=== PATIENT | male | born 1985 | race Caucasian/White ===

== ENCOUNTER → 2016-09-13 | Outpatient (CLI) | payer BC ==
--- NOTE | 2016-09-15 09:28 | SLEEP ---
DATE OF STUDY: 09/14/2016 ATTENDING PHYSICIAN: YESENIA Maria. The patient is 31 years old, who weighs 210 pounds with a BMI of 37.2. The patient's Sawyer score was 11. Home sleep study was performed by [facility]. The total recording time was 395 minutes. During the night study, the patient had 4 central apneas, 117 obstructive apneas, and 5 mixed apneas. There were 134 hypopneas. The patient's apnea hypopnea index was 40 per hour. Supine index 46 per hour. Nocturnal oximetry study revealed that 33 minutes were spent in oxygen saturation of less than 90%. Lowest oxygen level was 73% with an average of 93%. Mean heart rate was 89 beats per minute. IMPRESSION: 1. Severe sleep apnea-hypopnea syndrome with an apnea-hypopnea index of 40 per hour. 2. Nocturnal hypoxia secondary to obstructive sleep apnea. RECOMMENDATIONS: 1. The patient should return for in-lab CPAP titration study. 2. Once optimal CPAP pressure is achieved, then follow up in 4-6 weeks to assess compliance with CPAP and to document clinical improvement. 3. Weight loss is strongly advised. 4. Avoid SENIOR SALES REPRESENTATIVE depressants. 5. Caution regarding driving until symptoms of sleep apnea resolve with the use of CPAP. YUKI JIMENEZ MD DR: JOSUE/christy JOB#: [id number] / [id number] JENNIE Wells MTDD
== END | disposition home or self-care (01) ==
LOC: RT 07:23
PROVIDERS: ATTEND Physician Assistant
DX: R40.0 Somnolence (principal); R06.83 Snoring; R06.81 Apnea, not elsewhere classified
CPT/HCPCS: G0399

== ENCOUNTER → 2016-11-03 | Outpatient (CLI) | payer BC ==
--- NOTE | 2016-11-04 19:57 | SLEEP ---
DATE OF STUDY: 11/03/2016 OBJECTIVE: The patient is a 31-year-old male with trouble falling asleep, snoring, fatigue, observed apnea, and excessive daytime somnolence. Body mass index 37. [place] sleep score 11. INTERPRETATION: This is a CPAP titration study. The patient is returning from my prior study. At study, showed severe sleep apnea-hypopnea syndrome with an apnea-hypopnea index of 40 events per hour of sleep. On the current study, sleep architecture is characterized by a sleep efficiency of 79% across the 7.1 hours of recording time. Stage volumes are normal for age. Respiratory monitoring shows a total of 76 events for an apnea-hypopnea index of 13.6 events per hour of sleep. Minimum oxygen saturation is 85%. Treatment is initiated and in the setting of 15 cm, apnea-hypopnea index is 4.5 events per hour sleep. No significant cardiac arrhythmias are observed. Periodic limb movements of sleep occur at the rate of 11 per hour, 0 per hour associated with arousals. IMPRESSION: 1. Abnormal polysomnogram showing obstructive sleep apnea-hypopnea treatable with CPAP at 15 cm. 2. Mild periodic limb movements of sleep. RECOMMENDATION: 1. The patient should be started on 15 cm of CPAP using a Respironics small DreamWear nasal pillows. 2. The patient should pursue weight loss and avoid sedatives and alcohol. Thank you for letting us help with the patient's care. CATHY RANGEL MD DR: NAPOLEON/christy JOB#: [id number] / [id number] Dr. AMARILIS Turner [facility]
== END | disposition home or self-care (01) ==
LOC: RT 18:43
PROVIDERS: ATTEND Physician Assistant
DX: G47.33 Obstructive sleep apnea (adult) (pediatric) (principal)
CPT/HCPCS: 95811

== ENCOUNTER 2016-12-05 19:00 | Emergency (ER) | payer BC ==
--- NOTE | 2016-12-05 19:43 | PHYS DOC ---
Past Medical History Past Medical History: Anxiety Past Surgical History: Other Additional Past Surgical Histo: ACL REPAIR Alcohol Use: Rarely Drug Use: None Adult General Chief Complaint Chief Complaint: ITCHING HPI HPI Patient is a 31 year old male who presents with 5 day history of itchy rash to the palms into the face and neck, some subjective feelings of throat closing and been able to swallow secretions normally with a normal voice. Levasy to be secondary to the Zoloft allergy and the medication was discontinued on Tuesday per the direction of his PCP. He's been taking some Benadryl and Zyrtec without much improvement at home. Review of Systems Review of Systems Constitutional: Denies fever or chills [] Eyes: Denies change in visual acuity, redness, or eye pain [] HENT: Denies nasal congestion or sore throat [] Respiratory: Denies cough or shortness of breath [] Cardiovascular: No additional information not addressed in HPI [] GI: Denies abdominal pain, nausea, vomiting, bloody stools or diarrhea [] : Denies dysuria or hematuria [] Musculoskeletal: Denies back pain or joint pain [] Integument: Denies rash or skin lesions [] Neurologic: Denies headache, focal weakness or sensory changes [] Endocrine: Denies polyuria or polydipsia [] Current Medications Current Medications Current Medications Medications (Trade) Dose Ordered Sig/Arik Start Time Stop Time Status Last Admin Dose Admin Dexamethasone Sodium Phosphate (Decadron) 10 mg 1X ONCE 12/05/16 19:45 12/05/16 19:50 DC 12/05/16 20:06 10 MG Diphenhydramine HCl (Benadryl) 50 mg 1X ONCE 12/05/16 19:45 12/05/16 19:50 DC 12/05/16 20:02 50 MG Famotidine (Pepcid) 20 mg 1X ONCE 12/05/16 19:45 12/05/16 19:50 DC 12/05/16 20:01 20 MG Sodium Chloride 500 ml @ 500 mls/hr 1X ONCE 12/05/16 19:45 12/05/16 20:44 12/05/16 20:00 500 MLS/HR Allergies Allergies Allergies Coded Allergies Type Severity Reaction Last Updated Verified sertraline Allergy Severe HIVES 12/05/16 Yes Physical Exam Physical Exam Constitutional: Well developed, well nourished, no acute distress, non-toxic appearance. [] HENT: Normocephalic, atraumatic, bilateral external ears normal, oropharynx moist, no oral exudates, nose normal. [] Eyes: PERRLA, EOMI, conjunctiva normal, no discharge. [] Neck: Normal range of motion, no tenderness, supple, no stridor. [] Cardiovascular:Heart rate regular rhythm, no murmur [] Lungs & Thorax: Bilateral breath sounds clear to auscultation [] Abdomen: Bowel sounds normal, soft, no tenderness, no masses, no pulsatile masses. [] Skin: Warm, dry, no erythema, faint papular erythematous rash to the for head neck and some slight erythema to the palms of both hands [] Back: No tenderness, no CVA tenderness. [] Extremities: No tenderness, no cyanosis, no clubbing, ROM intact, no edema. [] Neurologic: Alert and oriented X 3, normal motor function, normal sensory function, no focal deficits noted. [] Psychologic: Affect normal, judgement normal, mood normal. [] Current Patient Data Vital Signs Vital Signs Date Time Temp Pulse Resp B/P (MAP) Pulse Ox O2 Delivery O2 Flow Rate FiO2 12/05/16 19:16 98.7 84 20 96 Room Air 98.7 EKG EKG [] Radiology/Procedures Radiology/Procedures [] Course & Med Decision Making Course & Med Decision Making Pertinent Labs and Imaging studies reviewed. (See chart for details) Plan of care will be IV fluids Benadryl and Pepcid and steroids and reexamination. 2030 PM reexamination patient feels much improved the rash is resolved advised we'll place on prednisone for the next 4 days. Dragon Disclaimer Dragon Disclaimer This electronic medical record was generated, in whole or in part, using a voice recognition dictation system. Departure Departure Impression: Primary Impression: Urticaria due to drug allergy Disposition: HOME, SELF-CARE Condition: IMPROVED Referrals: JENNIE OLMOS (PCP) Patient Instructions: Drug Allergy, [id number], Hives, Gzkw-wv-Cbch Scripts Prednisone (PREDNISONE) 50 Mg Tablet 1 TAB PO DAILY for 4 Days, #4 TAB Please start tomorrow Prov: ERICKA ADAMSON MD 12/05/16 ERICKA ADAMSON MD Dec 05, 2016 19:43
[2016-12-05] MEDS ORDERED: DEXAMETHASONE SOD PHOS 4 MG/ML VIAL IV ONE (19:45)
[2016-12-05] MEDS ORDERED: diphenhydrAMINE 50 MG/ML VIAL IVP ONE (19:45)
[2016-12-05] MEDS ORDERED: FAMOTIDINE 20 MG/2 ML VIAL IVP ONE (19:45)
[2016-12-05] MEDS ORDERED: IV NORMAL SALINE 500ML BAG 500 ML IV ONE (19:45)
[2016-12-05 20:30] VITALS: BP 138/87
[2016-12-05] MEDS ORDERED: PRED50TA PO (20:30)
== END 2016-12-05 20:35 | disposition home or self-care (01) ==
LOC: ER 19:00
DX: L50.0 Allergic urticaria (principal); Z88.8 Allergy status to other drugs, medicaments and biological substances
CPT/HCPCS: 96361; 96374; 96375; 99285; J1100; J1200; J7040; S0028

== ENCOUNTER 2016-12-09 12:04 | Emergency (ER) | payer BC ==
[~2016-12-09] VITALS: Ht 160 cm; Wt 97.5 kg
[~2016-12-09 12:04] MED LIST: PRED50TA PO
[2016-12-09] MEDS ORDERED: EPINEPHrine SYRINGE 1 MG/10 ML SYRINGE IM ONE (12:45)
[2016-12-09] MEDS ORDERED: diphenhydrAMINE 50 MG/ML VIAL IVP ONE (12:45)
[2016-12-09] MEDS ORDERED: methylPREDNISolone SOD SUCC PF 125 MG/2 ML VIAL. IV ONE (12:45)
[2016-12-09 13:00] LABS: BASO # 0.1 x10^3/uL (0.0-0.2); BASO % 1 % (0-3); EOS % 0 % (0-3); HEMOGLOBIN 15.8 g/dL (13.0-17.5); LYMPH # 5.4 x10^3/uL (1.0-4.8); LYMPH % 32 % (24-48); MEAN CORPUSCULAR HEMOGLOBIN 28 pg (25-35); MEAN CORPUSCULAR HGB CONC 34 g/dL (31-37); MEAN CORPUSCULAR VOLUME 83 fL (79-100); MONO % 8 % (0-9); NEUT % 60 % (31-73); PLATELET COUNT 250 x10^3/uL (140-400); RED BLOOD COUNT 5.67 x10^6/uL (4.30-5.70); RED CELL DISTRIBUTION WIDTH 13.4 % (11.5-14.5); WHITE BLOOD COUNT 17.3 x10^3/uL (4.0-11.0)
--- NOTE | 2016-12-09 13:04 | PHYS DOC ---
Past Medical History Past Medical History: Anxiety Past Surgical History: Other Additional Past Surgical Histo: ACL REPAIR Alcohol Use: Rarely Drug Use: None Adult General Chief Complaint Chief Complaint: ALLERGIC REACTION HPI HPI Patient is a 31 year old male who presents with complaints of allergic reaction. He started experiencing symptoms last Tuesday he was in the hospital on Tuesday and observing the ED for 2 hours, he felt improved and went home. But he started expressing symptoms again last night and then he got worse today so he decided to come in. Presently the patient is complaining of throat discomfort however he does not have any problems swallowing, no changes in his voice pattern, he does have swelling around the eyes and the face as well as scattered hives in his face and upper body. He is not aware any of any specific allergies and previously he has not experienced any allergic reactions or anaphylaxis. Review of Systems Review of Systems Constitutional: Denies fever or chills [] Eyes: Denies change in visual acuity, redness, or eye pain [] HENT: Denies nasal congestion or sore throat [] Respiratory: Denies cough or shortness of breath [] Cardiovascular: No additional information not addressed in HPI [] GI: Denies abdominal pain, nausea, vomiting, bloody stools or diarrhea [] : Denies dysuria or hematuria [] Musculoskeletal: Denies back pain or joint pain [] Integument: Denies rash or skin lesions [] Neurologic: Denies headache, focal weakness or sensory changes [] Endocrine: Denies polyuria or polydipsia [] Current Medications Current Medications Current Medications Medications (Trade) Dose Ordered Sig/Arik Start Time Stop Time Status Last Admin Dose Admin Diphenhydramine HCl (Benadryl) 25 mg 1X ONCE 12/09/16 12:45 12/09/16 12:46 DC 12/09/16 12:55 25 MG Epinephrine HCl (Adrenalin) 0.5 mg 1X ONCE 12/09/16 13:15 12/09/16 13:16 DC 12/09/16 13:14 0.5 MG Epinephrine HCl (EPINEPHrine SYRINGE) 0.5 mg 1X ONCE 12/09/16 12:45 12/09/16 12:46 Cancel Methylprednisolone Sodium Succinate (SOLU-Medrol 125MG VIAL) 125 mg 1X ONCE 12/09/16 12:45 12/09/16 12:46 DC 12/09/16 12:55 125 MG Allergies Allergies Allergies Coded Allergies Type Severity Reaction Last Updated Verified sertraline Allergy Severe HIVES 12/05/16 Yes Physical Exam Physical Exam Constitutional: Well developed, well nourished, mild distress, non-toxic appearance. [] HENT: Normocephalic, atraumatic,, oropharynx moist with swelling of the mucous membranes however airway still patent, no oral exudates, nose normal. No drooling, no stridor [] Eyes: EOMI, conjunctiva normal, no discharge, periorbital swelling both eyes [ ] Neck: Normal range of motion, no tenderness, supple, no stridor. No LAD, no meningeal signs Cardiovascular:Heart rate regular rhythm, no murmur, normal peripheral perfusion Lungs & Thorax: Bilateral breath sounds clear to auscultation, no tachypnea, no rhonchi, no wheezing Abdomen: Bowel sounds normal, soft, no tenderness, no masses, no pulsatile masses. [] Skin: Warm, dry, scattered hives throughout the face and upper chest [] Back: No tenderness, no CVA tenderness. [] Extremities: No tenderness, no cyanosis, no clubbing, ROM intact, no edema. [] Neurologic: Alert and oriented X 3, normal motor function,, no focal deficits noted. [] Psychologic: Affect normal, judgement normal, mood normal. [] Current Patient Data Vital Signs Vital Signs Date Time Temp Pulse Resp B/P (MAP) Pulse Ox O2 Delivery O2 Flow Rate FiO2 12/09/16 14:24 98 13 141/77 (98) 94 Room Air 12/09/16 12:18 97.6 97.6 Lab Values Laboratory Tests Test 12/09/16 12:20 White Blood Count 17.3 x10^3/uL (4.0-11.0) H Red Blood Count 5.67 x10^6/uL (4.30-5.70) Hemoglobin 15.8 g/dL (13.0-17.5) Hematocrit 47.0 % (39.0-53.0) Mean Corpuscular Volume 83 fL (79-100) Mean Corpuscular Hemoglobin 28 pg (25-35) Mean Corpuscular Hemoglobin Concent 34 g/dL (31-37) Red Cell Distribution Width 13.4 % (11.5-14.5) Platelet Count 250 x10^3/uL (140-400) Neutrophils (%) (Auto) 60 % (31-73) Lymphocytes (%) (Auto) 32 % (24-48) Monocytes (%) (Auto) 8 % (0-9) Eosinophils (%) (Auto) 0 % (0-3) Basophils (%) (Auto) 1 % (0-3) Neutrophils # (Auto) 10.4 x10^3uL (1.8-7.7) H Lymphocytes # (Auto) 5.4 x10^3/uL (1.0-4.8) H Monocytes # (Auto) 1.4 x10^3/uL (0.0-1.1) H Eosinophils # (Auto) 0.1 x10^3/uL (0.0-0.7) Basophils # (Auto) 0.1 x10^3/uL (0.0-0.2) Sodium Level 140 mmol/L (136-145) Potassium Level 3.5 mmol/L (3.5-5.1) Chloride Level 103 mmol/L (98-107) Carbon Dioxide Level 28 mmol/L (21-32) Anion Gap 9 (6-14) Blood Urea Nitrogen 21 mg/dL (8-26) Creatinine 1.0 mg/dL (0.7-1.3) Estimated GFR (Cockcroft-Gault) 86.1 Glucose Level 93 mg/dL (70-99) Calcium Level 8.9 mg/dL (8.5-10.1) Laboratory Tests 12/09/16 12:20 Laboratory Tests 12/09/16 12:20 EKG EKG [] Radiology/Procedures Radiology/Procedures [] Course & Med Decision Making Course & Med Decision Making Pertinent Labs and Imaging studies reviewed. (See chart for details) 1345 SBP now 135. Pt status unchanged, still swelling of oropharynx but patient managing secretions, states he does not feel worse then when he arrived. 1417 pt feels improved, swelling of oropharynx nearly resolved. No drooling, stridor, no respiratory distress. 1449 pt continues to feel improved and is requesting discharge home. No airway compromise or respiratory distress. [] Dragon Disclaimer Dragon Disclaimer This electronic medical record was generated, in whole or in part, using a voice recognition dictation system. Departure Departure Impression: Primary Impression: Allergic reaction Disposition: HOME, SELF-CARE Condition: IMPROVED Referrals: JENNIE OLMOS (PCP) please follow up for recheck by your pcp in 1 day. Please discuss this visit and possible need for evaluation by insulation cutter. Patient Instructions: Allergies, Generic Scripts Diphenhydramine Hcl (BENADRYL) 25 Mg Capsule 1 CAP PO BID for 5 Days, #10 CAP 1 Refill Prov: Jeniffer TRIVEDI MD 12/09/16 Famotidine (PEPCID) 20 Mg Tablet 20 MG PO BID for 5 Days, #10 TAB Prov: Jeniffer TRIVEDI MD 12/09/16 Prednisone (PREDNISONE) 20 Mg Tablet 40 MG PO DAILY for 5 Days, #10 TAB Prov: Jeniffer TRIVEDI MD 12/09/16 Epinephrine (EPIPEN 2-DOROTHY) 0.3 Mg/0.3 Ml Auto.injct 0.3 MG IJ 1X for 1 Day, #1 SYR Prov: Jeniffer TRIVEDI MD 12/09/16 Jeniffer TRIVEDI MD Dec 09, 2016 13:04
[2016-12-09 13:11] LABS: CALCIUM 8.9 mg/dL (8.5-10.1); GFR 86.1; POTASSIUM 3.5 mmol/L (3.5-5.1)
[2016-12-09] MEDS ORDERED: EPINEPHrine 1 MG/ML VIAL IM ONE (13:15)
[2016-12-09] MEDS ORDERED: PRED20TA PO (14:57)
[2016-12-09] MEDS ORDERED: FAMO-63 PO (14:57)
[2016-12-09] MEDS ORDERED: DIPH25CA58 PO (14:57)
[2016-12-09] MEDS ORDERED: EPIPEN 2-P0.3 MG/0.3 IJ (14:57)
[2016-12-09 15:01] VITALS: BP 147/81
== END 2016-12-09 15:14 | disposition home or self-care (01) ==
LOC: ER 12:04
DX: T78.40XA Allergy, unspecified, initial encounter (principal); F41.9 Anxiety disorder, unspecified; Z88.8 Allergy status to other drugs, medicaments and biological substances; X58.XXXA Exposure to other specified factors, initial encounter
CPT/HCPCS: 36415; 80048; 85025; 96372; 96374; 96375; 99284; J0171; J1200; J2930